=== PATIENT | female | born 1985 | race Caucasian/White ===

== ENCOUNTER 2019-07-09 07:40 | Inpatient (IN) | payer OTHER ==
[2019-07-09] VITALS (123 sets, daily range): BP systolic 91–97; BP diastolic 51–74; PULSE 113–134; TEMP 98.1–98.7; O2SAT 84–100
[~2019-07-09] VITALS: Ht 157.5 cm; Wt 74.3 kg
[~2019-07-09 07:40] MED LIST: ATIVAN 1MG T1 MG/TAB PO; FLEXERIL 1010 MG/TAB PO; PROZAC 20MG20 MG PO; TREXIMET 500 MG1 TAB PO; VOLTAREN 50MG T50 MG PO
--- NOTE | 2019-07-09 10:10 | NUR ---
PATIENT ADMITED VIA POV TO ROOM 347. PATIENT IS OVER AN HOUR LATE FROM REPORTED DISCHARGE TIME FROM [facility]. WHEN ASKED, PATIENT STATED SHE WENT HOME TO CHANGE CLOTHES. SHE ALSO CONFIRMS DRINKING WATER & JUICE KNOWING SHE WAS COMING TO [facility] FOR A POSSIBLE PROCEDURE. [facility] REPORTED POSITIVE DRUG SCREEN. PATIENT'S IV WAS DC'D ON DISCHARGE. RE-STARTED 20 GAUZE IV INTO RIGHT HAND WITH IV FLUIDS INFUSING VIA PUMP PER ORDERS. NO C/O N/V. CURRENTLY NPO. PATIENT UNABLE TO VOID ON ADMIT. JOHNSON PLACED TO DD WITH ORANGE COLORED URINE NOTED. UA SENT. PHYSICIAN NOTIFIED OF ARRIVAL. HEAD TO TOE ASSESSMENT COMPLETE. FRIENDS AT BEDSIDE.
[2019-07-09 11:51] LABS: COLLECTION METHOD CATHETER
[2019-07-09 12:17] LABS: TRICYCLIC ANTIDEPRESS URINE NEGATIVE
[2019-07-09 12:19] LABS: PH 5 (5-8); SQUAMOUS EPITHELIAL 0-2 /hpf; URINE APPEARANCE Hazy; URINE BACTERIA Rare /hpf; URINE BILIRUBIN Negative (NEGATIVE); URINE BLOOD 3+ (NEGATIVE); URINE COLOR Amber; URINE GLUCOSE Negative (NEGATIVE); URINE KETONE Negative (NEGATIVE); URINE LEUKOCYTE ESTERASE 2+ (NEGATIVE); URINE NITRATE Positive (NEGATIVE); URINE PROTEIN(semi-quant) 2+ (NEGATIVE); URINE RBC >50 /hpf; URINE UROBILINOGEN Negative (NEGATIVE); URINE WBC >50 /hpf
[2019-07-09] MEDS ORDERED: MINIPRESS 1M1 MG/CAP PO (13:04)
--- NOTE | 2019-07-09 15:08 | NUR ---
Patient arrives from PACU and is transferred to ICU bed and monitors. Assessment and vitals as charted. Dr. Lane called for clarification of transfer orders and changes made as entered. Dr. Flores notified of consult. Care assumed at this time.
[2019-07-09 17:31] LABS: HEMATOCRIT 37.5 % (37.0-47.0); HEMOGLOBIN 12.3 g/dl (12.5-16.0); MEAN CELL VOLUME 93 fl (80.0-100.0); MEAN CORPUSCULAR HEMOGLOBIN 31 pg (27.0-31.0); MEAN CORPUSCULAR HGB CONC 33 g/dl (33.0-37.0); MEAN PLATELET VOLUME 12.4 fl (7.4-10.4); RED BLOOD COUNT 4.03 M/mm3 (4.10-5.30)
[2019-07-09 17:38] LABS: PLATELET COUNT 48 K/mm3 (130-400)
[2019-07-09 17:44] LABS: ALBUMIN 2.6 gm/dL (3.5-5.0); BILIRUBIN,TOTAL 0.4 mg/dL (0.0-1.0); CALCIUM 7.8 mg/dL (8.4-10.2); CREATININE, serum 1.59 (0.52-1.25); MAGNESIUM 1.5 mg/dL (1.6-2.3); PHOSPHOROUS 3.5 mg/dL (2.5-4.5); TOTAL PROTEIN 4.9 gm/dL (6.4-8.2)
[2019-07-09 17:49] LABS: BAND 22 % (0-10); LYMPHOCYTE 3 % (20.0-51.0); MYELOCYTE 1 % (0-0); NEUTROPHILS 69 % (42.0-75.2); PLATELET ESTIMATE DECREASED (NORMAL)
[2019-07-09 17:57] LABS: TOXIC GRANULATION PRESENT
--- NOTE | 2019-07-09 18:57 | NUR ---
Dr. Lane notified of most recenet lab values. No replacement orders recieved. Other new orders as entered in [facility].
--- NOTE | 2019-07-09 20:00 | NUR ---
Patient assessed, states she is having pain. Educated that she has pain medications availible if her BP systolic is greater than 90, PT states understanding. Will continue to educate and monitor.
[2019-07-10] VITALS (355 sets, daily range): BP systolic 80–112; BP diastolic 40–69; PULSE 96–113; TEMP 98.1–99; O2SAT 80–100
--- NOTE | 2019-07-10 02:00 | NUR ---
Dr. Booker called to follow up on PT BP's. Currently 85/46. Ordered 1L fluid bolus. I stated that the patient is in severe pain r/t to her uretal stone, Dr. Booker asked what pain medications she has on (percoet, morphine, and scheduled toradol). I told the provider I did not give the midnight toradol since her BP's were low, Dr. Booker asked what the patient's sodium and creatinine were (140 and 1.59, respectively), provider stated that we could not do the toradol since the Pants Presser Automatic was high and didn't want to give percocet or morphine due to low BP. Decided on ordering fentanyl stating "it may drop the BP some but not as much as the morphine."
--- NOTE | 2019-07-10 02:05 | NUR ---
Spoke with [facility] RN about the ordered fluid bolus and the RN stated to give it over 2 hours. [facility] RN inquired over fluid output (PT has adequate output but it is still cloudy), recommended I flush with sterile water to prevent any blockages.
--- NOTE | 2019-07-10 07:00 | NUR ---
Report given to JOSE Lai.
--- NOTE | 2019-07-10 08:25 | NUR ---
MD Domingo in to see pt
--- NOTE | 2019-07-10 11:50 | NUR ---
MD Domingo notified critical low platlet count. Hospitalist consulted. MD Marlena on unit and notified at this time
[2019-07-10 12:13] LABS: MEAN CELL VOLUME 94 fl (80.0-100.0); MEAN CORPUSCULAR HGB CONC 32 g/dl (33.0-37.0); MEAN PLATELET VOLUME 13.2 fl (7.4-10.4); RED BLOOD COUNT 3.37 M/mm3 (4.10-5.30); REDCELL DISTRIBUTION WIDTH-CV 13.3 % (11.5-14.5)
[2019-07-10 12:15] LABS: HEMATOCRIT 31.5 % (37.0-47.0); HEMOGLOBIN 10.2 g/dl (12.5-16.0); MEAN CORPUSCULAR HEMOGLOBIN 30 pg (27.0-31.0)
[2019-07-10 12:16] LABS: ALBUMIN 2.3 gm/dL (3.5-5.0); BILIRUBIN,TOTAL 0.2 mg/dL (0.0-1.0); CALCIUM 7.8 mg/dL (8.4-10.2); CREATININE, serum 1.4 (0.52-1.25); PLATELET COUNT 45 K/mm3 (130-400); POTASSIUM 4.2 mmol/L (3.4-5.0); TOTAL PROTEIN 4.7 gm/dL (6.4-8.2)
[2019-07-10 12:58] LABS: BAND 32 % (0-10); BURR CELLS 2+; LYMPHOCYTE 13 % (20.0-51.0); METAMYELOCYTE 2 % (0-0); NEUTROPHILS 53 % (42.0-75.2); POIKILOCYTOSIS 2+
[2019-07-10 12:59] LABS: HYPOCHROMIA 1+; PLATELET ESTIMATE DECREASED (NORMAL)
--- NOTE | 2019-07-10 14:49 | NUR ---
Personal Care Home Administrator met with patient and patient's boyfriend, Alvino (ph#[phone]) to discuss discharge planning. Patient states she lives in [place] with Alvino and another roommate. Patient states she sees Dr. Fuentes for primary care and obtains medications from [facility] in [place]. During intake, Alvino left the room. After Alvino left, SW spoke with patient about her positive urine drug screen. Patient admitted to marijuana use but denied any other drug use. Patient denies ever seeking treatment for drug abuse and did not feel she needed treatment at this time. Patient states she does not have Advance Directives but was interested in setting them up. SW provided the form and will follow up on witness signatures.
--- NOTE | 2019-07-10 19:45 | NUR ---
Patient alert and oriented. Requesting pain medication for 8 of 10 pain. Discussed pain relief options including non pharmacalogical options. Patient receptive. IV in the right hand. Antibiotics given as ordered. Patient required one dose of IV fentanyl for pain managment, discussed with paitent benefits of oral pain medication.
[2019-07-10 22:19] LABS: CREATININE, serum 1.39 (0.52-1.25)
[2019-07-10 22:29] LABS: FRACTIONAL EXCRETION OF NA+ 0.3 %
[2019-07-11 03:39] VITALS: BP 101/65; PULSE 94; TEMP 98.7
[2019-07-11 06:47] LABS: MEAN CELL VOLUME 96 fl (80.0-100.0); MEAN CORPUSCULAR HEMOGLOBIN 30 pg (27.0-31.0); MEAN CORPUSCULAR HGB CONC 32 g/dl (33.0-37.0); MEAN PLATELET VOLUME 12.2 fl (7.4-10.4); RED BLOOD COUNT 3.31 M/mm3 (4.10-5.30); REDCELL DISTRIBUTION WIDTH-CV 13.3 % (11.5-14.5)
[2019-07-11 06:54] LABS: HEMATOCRIT 31.7 % (37.0-47.0)
[2019-07-11 06:55] LABS: PLATELET COUNT 36 K/mm3 (130-400)
[2019-07-11 06:57] LABS: CALCIUM 7.8 mg/dL (8.4-10.2); CREATININE, serum 1.29 (0.52-1.25); POTASSIUM 3.8 mmol/L (3.4-5.0)
--- NOTE | 2019-07-11 07:21 | NUR ---
Notified hospitalist of platelet value of 36 and of change in vital signs. Physician said to continue pain medication, no other orders at this time.
[2019-07-11 07:25] LABS: BAND 21 % (0-10); BURR CELLS 1+; EOSINOPHIL 1 % (0-4); LYMPHOCYTE 22 % (20.0-51.0); NEUTROPHILS 54 % (42.0-75.2); PLATELET ESTIMATE DECREASED (NORMAL)
--- NOTE | 2019-07-11 07:35 | NUR ---
GUANAKO PARIKH CALLED AND NOTIFIED OF CHANGE IN PATIENTS VITAL SIGNS OVER THE LAST COUPLE HOURS, CONCERNS EXPRESSED FOR SEPSIS OR DETOX. NO ORDERS GIVEN AT THIS TIME.
[2019-07-11 07:37] VITALS: BP 129/73; PULSE 84; TEMP 101.5
--- NOTE | 2019-07-11 08:00 | NUR ---
SEE MORNING SHIFT ASSESSMENT.
--- NOTE | 2019-07-11 09:01 | NUR ---
Vancomycin Initial Dosing Pharmacy Note Ordering provider: Valentin Lane MD Indication/duration: enterococcus UTI, 7 days Relevant comorbidities: left ureteral stone LABS: SCr 1.29, CrCl~57, GFR 48 Recommendation: Will start Vancomycin 1.25 gm IV x1 loading dose, then Vancomycin 1 gm IV q12h. Pharmacy will continue to monitor and check a Vancomycin trough on 07/12/19. Loading dose: 1.25 grams Maintenance dose: 1 gram every 12 hours Trough goal: 10-15 ug/mL
[2019-07-11 12:15] VITALS: BP 110/60; PULSE 108; TEMP 98.1
[2019-07-11 16:19] VITALS: BP 115/74; PULSE 111; TEMP 99.6
--- NOTE | 2019-07-11 19:16 | NUR ---
REPORT GIVEN TO JOSE CURRY.
[2019-07-11 20:00] VITALS: BP 121/74; PULSE 116; TEMP 98.4
--- NOTE | 2019-07-11 22:21 | NUR ---
Pt doing ok. in room with boyfriend. does c/o abdominal pain. received prn morphine. does have generalized edema all over. is alert and oriented with vss. call light within reach, will continue to monitor
--- NOTE | 2019-07-11 23:12 | NUR ---
Pt sleeping in bed with boyfriend. Call light within reach, will continue to monitor
[2019-07-12] VITALS (12 sets, daily range): BP systolic 104–1025; BP diastolic 66–81; PULSE 101–131; TEMP 98.1–102.7
--- NOTE | 2019-07-12 02:05 | NUR ---
prn tylenol given, temp of 102.7
--- NOTE | 2019-07-12 04:39 | NUR ---
Pt temp decreased to 100.1, hr elevated at 130. pt requesting pain medicine. will give prn oxy/tylenol. no other concerns at this time. call light within reach, will continue to monitor
[2019-07-12 08:31] LABS: HEMATOCRIT 30.8 % (37.0-47.0); HEMOGLOBIN 9.8 g/dl (12.5-16.0); MEAN CELL VOLUME 94 fl (80.0-100.0); MEAN CORPUSCULAR HEMOGLOBIN 30 pg (27.0-31.0); MEAN CORPUSCULAR HGB CONC 32 g/dl (33.0-37.0); MEAN PLATELET VOLUME 12.1 fl (7.4-10.4); PLATELET COUNT 55 K/mm3 (130-400); RED BLOOD COUNT 3.27 M/mm3 (4.10-5.30); REDCELL DISTRIBUTION WIDTH-CV 13.4 % (11.5-14.5)
[2019-07-12 08:42] LABS: CALCIUM 7.8 mg/dL (8.4-10.2); CREATININE, serum 1.16 (0.52-1.25); MAGNESIUM 1.7 mg/dL (1.6-2.3); POTASSIUM 3.9 mmol/L (3.4-5.0)
--- NOTE | 2019-07-12 09:00 | NUR ---
Assessment complete. Pt drowsy, alert to stimuli, reports pain to left side 9 out of 10. IVF's infusing per orders through right hand/wrist without s/s of complications. Bilat upppe ext with non-pitting edema, right slight more than left. No further needs reported. Call light in reach.
[2019-07-12 11:18] LABS: BAND 2 % (0-10); EOSINOPHIL 1 % (0-4); LYMPHOCYTE 15 % (20.0-51.0); NEUTROPHILS 78 % (42.0-75.2); PLATELET ESTIMATE DECREASED (NORMAL)
--- NOTE | 2019-07-12 11:30 | NUR ---
Pt c/o pain to RH IV. Checked and flushed IV to RH and pt verbalized pain and stinging while flushing. IV to RH DC'd. Multiple failed attempts to start IV. Aldo Cohen started IV to LAC. Morphine RN NURSERY pump restarted. Assisted pt to BSC x3. Call light within reach. Needs attended too.
--- NOTE | 2019-07-12 13:20 | NUR ---
GLAZING DEPARTMENT SUPERVISOR started per orders with IVF rate decreased per orders. Pt grimacing with movement, very thankful for the GLAZING DEPARTMENT SUPERVISOR Morphine, verbalizes understanding of wearing O2 and CO2 monitoring. VSS. Call light in reach.
--- NOTE | 2019-07-12 17:56 | NUR ---
Patient sitting up in bed, friend at the bedside. Complaints of pain, unsure where pain is located. Patient on MEAL COOK and tolerating well. VS monitored. VSS. IV CDI. Patient complaints of a headache, medication given when requested. No further needs expressed from patient. Call light within reach
--- NOTE | 2019-07-12 20:00 | NUR ---
Received report from JOSE Henry. Assessment complete. Pt c/o pain to abdomen, rate 8/10. Pt on WOOL FLEECE GRADER pump morphine 1 mg/6 mins. Pt utilizes pump appropriately and states relief of pain, rate 1-2/10. Alert and oriented. Tele monitor in place, leads checked. Significant other/friend at bedside. Needs met. Call light within reach.
[2019-07-13] VITALS (8 sets, daily range): BP systolic 109–127; BP diastolic 51–76; PULSE 69–117; TEMP 97.9–101.8
--- NOTE | 2019-07-13 05:54 | NUR ---
Assisted pt to BSC a few times during this shift. Pt continued to c/o 8-9/10 to abdomen with relief after using MACHINE OVERHAULER pump, rate down to 2/10. Pt off MACHINE OVERHAULER pump during cipro administration due to morphine and cipro incompatibility. PRN Percocet given to pt as requested with onset of pain. MACHINE OVERHAULER pump restarted after cipro dose complete. Needs met. Friend/significant other remained at bedside. Call light within reach.
--- NOTE | 2019-07-13 06:54 | NUR ---
Report given to JOSE Henry and JOSE Swain.
[2019-07-13 08:36] LABS: BASO % 0.5 % (0.0-2.0); EOS # 0.1 (0.0-0.7); EOS % 1.4 % (0-4.0); GRAN % 69.8 % (42.2-75.2); HEMOGLOBIN 11.6 g/dl (12.5-16.0); LYMPH # 0.8 (1.2-3.4); LYMPH % 14.5 % (20.0-51.0); MEAN CELL VOLUME 95 fl (80.0-100.0); MEAN CORPUSCULAR HEMOGLOBIN 30 pg (27.0-31.0); MEAN CORPUSCULAR HGB CONC 32 g/dl (33.0-37.0); MEAN PLATELET VOLUME 11.5 fl (7.4-10.4); MONO # 0.7 (0.1-0.6); MONO % 12.4 % (1.7-9.3); PLATELET COUNT 69 K/mm3 (130-400); RED BLOOD COUNT 3.86 M/mm3 (4.10-5.30); REDCELL DISTRIBUTION WIDTH-CV 13.6 % (11.5-14.5)
[2019-07-13 08:39] LABS: HEMATOCRIT 36.8 % (37.0-47.0)
[2019-07-13 08:49] LABS: CALCIUM 8.4 mg/dL (8.4-10.2); POTASSIUM 3.7 mmol/L (3.4-5.0)
--- NOTE | 2019-07-13 10:57 | NUR ---
SW attended clinical rounds. The patient had a fever last night. She may tentatively be ready to discharge tomorrow, 07/13. SW to continue to follow as needed.
--- NOTE | 2019-07-13 17:19 | NUR ---
Vancomycin Initial Dosing Pharmacy Note Ordering provider: Valentin Lane MD Indication/duration: Urine infection LABS: est Crcl of 65 ml/min Recommendation: Initiate at 1 gram IV q 8hr, will follow labs, obtain trough prior to 6th dose. Creatinine level is trending down, dose may need further adjustments. Loading dose: 1 grams Maintenance dose: 1 gram every 8 hours Trough goal: 15-20 ug/mL
--- NOTE | 2019-07-13 18:21 | NUR ---
Patient has had complaints of pain in left side where stent is placed. Patient also started her mensturation and may be adding to current pain. Patient A&Ox3. VSS. IV CDI, fluids infusing. Patient urine caballero red with clots. Monitoring I&O's. Patient encouraged to ambulate. Has complaints of nausea, did not request nausea medication. No further needs expressed from patient. Call light within reach
--- NOTE | 2019-07-13 21:30 | NUR ---
Patient resting in bed. Currently afebrile. Patients states she has a headache. Urine is caballero red a this time, however patients states she is expecting her period. Patient states she has a headache, pain medication given. IV in andreina left aneicubital.
[2019-07-14 00:15] VITALS: BP 113/66; PULSE 95; TEMP 100.6
[2019-07-14 04:36] VITALS: BP 123/76; PULSE 109; TEMP 98.5
[2019-07-14 08:00] VITALS: BP 119/69; PULSE 121; TEMP 101.2
--- NOTE | 2019-07-14 09:50 | NUR ---
ASSESSMENT COMPLETED. PATIENT SITTING AT WINDOW WITH SO. TOLDERATED ASSESSMENT WELL. GENERALIZED EDEMA NOTED. VSS. IV IS CLEAN DRY INTACT AND PATENT. PATIENT UNDERSTANDS PLAN OF CARE. NO FURTHER NEEDS WERE EXPRESSED. CALL LIGHT WITHIN REACH.
[2019-07-14 12:00] VITALS: BP 120/70; PULSE 114; TEMP 98.1
--- NOTE | 2019-07-14 13:00 | NUR ---
PATIENT DOWN TO CT AT 1300.
[2019-07-14 14:55] LABS: BASO % 0.5 % (0.0-2.0); EOS # 0.1 (0.0-0.7); EOS % 1.2 % (0-4.0); GRAN # 4.5 (1.4-6.5); GRAN % 69.7 % (42.2-75.2); LYMPH # 0.8 (1.2-3.4); LYMPH % 12.9 % (20.0-51.0); MEAN CELL VOLUME 91 fl (80.0-100.0); MEAN CORPUSCULAR HGB CONC 33 g/dl (33.0-37.0); MEAN PLATELET VOLUME 10.9 fl (7.4-10.4); MONO # 0.9 (0.1-0.6); MONO % 14.3 % (1.7-9.3); PLATELET COUNT 89 K/mm3 (130-400); RED BLOOD COUNT 3.16 M/mm3 (4.10-5.30)
[2019-07-14 14:59] LABS: HEMATOCRIT 28.6 % (37.0-47.0); HEMOGLOBIN 9.5 g/dl (12.5-16.0); MEAN CORPUSCULAR HEMOGLOBIN 30 pg (27.0-31.0)
[2019-07-14 15:11] LABS: CREATININE, serum 0.85 (0.52-1.25); POTASSIUM 3.2 mmol/L (3.4-5.0)
[2019-07-14] MEDS ORDERED: CIPRO 500MG TA500 MG PO (15:23)
[2019-07-14] MEDS ORDERED: NICODERM C14 MG/PATC TD (15:24)
--- NOTE | 2019-07-14 15:46 | NUR ---
MD Domingo called to notify MD Noreen has Ok'ed discharge of pt. Pt expressing wishes to be discharged
--- NOTE | 2019-07-14 18:19 | NUR ---
Hand written scripts from MD Domingo provided. Preferred pharmacy closed close to discharge time, recommended [facility] as a second option. Explained the importance of ciproflaxin compliance to prevent further infection.
== END 2019-07-14 18:15 | disposition home or self-care (01) | DRG 854 ==
LOC: SURG 07:40 → ICU 14:00 → MEDICAL 14:00 → ICU 14:01 → SURG 15:11 → ICU 15:11 → MEDICAL 07-10 19:17
PROVIDERS: Hospitalist; Internal Medicine Critical Care Medicine; Nurse Practitioner Family; Physician Assistant; ADMIT Urology
PROC: 0T778DZ Dilation of Left Ureter with Intraluminal Device, Via Natural or Artificial Opening Endoscopic (ICD-10-PCS; principal; 2019-07-09 13:30)
PROC: BT1F1ZZ Fluoroscopy of Left Kidney, Ureter and Bladder using Low Osmolar Contrast (ICD-10-PCS; 2019-07-09 13:30)
DX: A41.9 Sepsis, unspecified organism (principal); N13.6 Pyonephrosis; N17.9 Acute kidney failure, unspecified; F41.9 Anxiety disorder, unspecified; F32.9 Major depressive disorder, single episode, unspecified; G43.909 Migraine, unspecified, not intractable, without status migrainosus; F17.200 Nicotine dependence, unspecified, uncomplicated; E86.1 Hypovolemia; F15.10 Other stimulant abuse, uncomplicated; D69.6 Thrombocytopenia, unspecified; E83.42 Hypomagnesemia; R65.20 Severe sepsis without septic shock; D64.9 Anemia, unspecified; E88.09 Other disorders of plasma-protein metabolism, not elsewhere classified; B95.2 Enterococcus as the cause of diseases classified elsewhere
CPT/HCPCS: 99223; 99232-AI; A4314; C1769; C2617; J0690; J0744; J1100; J1885; J1940; J2270; J2405; J2543; J2704; J3010; J3370; J7030; J7040; J7050; J7070; Q9967

== ENCOUNTER 2019-07-28 06:37 | Day surgery (SDC) | payer OTHER ==
[~2019-07-28] VITALS: Ht 157.5 cm; Wt 56.7 kg
[~2019-07-28 06:37] MED LIST changes: +CIPRO 500MG TA500 MG PO; +MINIPRESS 1M1 MG/CAP PO; +NICODERM C14 MG/PATC TD
[2019-07-28 07:03] VITALS: BP 119/77; PULSE 105; TEMP 97.3
[2019-07-28 07:11] LABS: TRICYCLIC ANTIDEPRESS URINE NEGATIVE
--- NOTE | 2019-07-28 07:24 | NUR ---
DR LOVE AND ANESTHESIA INFORMED OF LAB RESULTS. DR LOVE SAID HE WOULD BE INTO TALK WITH PATIENT.
--- NOTE | 2019-07-28 07:25 | NUR ---
PRE OP MEDS HELD AND IV NOT STARTED
--- NOTE | 2019-07-28 08:22 | NUR ---
DR LOVE INTO TALK WITH PATIENT AND DISCUSS LAB RESULTS
--- NOTE | 2019-07-28 08:25 | NUR ---
SURGERY CANCELLED OFFICE WILL CALL PATIENT AT HOME
--- NOTE | 2019-07-28 08:33 | NUR ---
PATIENT DISCHARGED PER OWN WILL STEADY GAIT. DISCHARGED IN CARE OF FRIENDS SUSHMA AND JEAN
== END 2019-07-28 08:33 | disposition home or self-care (01) ==
LOC: SDCO 06:37
PROVIDERS: Registered Nurse
DX: N20.1 Calculus of ureter (principal); R31.0 Gross hematuria; J45.909 Unspecified asthma, uncomplicated; I10 Essential (primary) hypertension; K21.9 Gastro-esophageal reflux disease without esophagitis; G43.909 Migraine, unspecified, not intractable, without status migrainosus; F41.9 Anxiety disorder, unspecified; F32.9 Major depressive disorder, single episode, unspecified; F43.10 Post-traumatic stress disorder, unspecified; Z53.8 Procedure and treatment not carried out for other reasons; Z87.891 Personal history of nicotine dependence

== ENCOUNTER 2020-06-07 13:02 | Day surgery (SDC) | payer SELFPAY ==
[~2020-06-07] VITALS: Ht 157.5 cm; Wt 64.4 kg
[2020-06-07 14:07] LABS: TRICYCLIC ANTIDEPRESS URINE NEGATIVE
[2020-06-07 14:16] VITALS: BP 130/81; PULSE 124; TEMP 98.4
[2020-06-07 16:55] VITALS: BP 113/70; PULSE 122; TEMP 98.1
--- NOTE | 2020-06-07 16:55 | NUR ---
Patient was brought back to [facility] [address] via cart from PACU. Report recieved from Geeta GARCIA. Placed on monitors, vital signs stable, increased HR within range of baseline. Alert and oriented complains of pain 8/10 to flank with slight nausea. Sipping on water without difficulty. Requesting muffin and juice at this time. Call hughes within reach, will continue to monitor.
[2020-06-07 17:15] VITALS: BP 118/66; PULSE 121
--- NOTE | 2020-06-07 17:15 | NUR ---
Patient tolerating food and drink without difficulty. Requesting oral pain medication. To be given per doctors orders. Will monitor.
[2020-06-07 17:30] VITALS: BP 106/62; PULSE 126
--- NOTE | 2020-06-07 17:40 | NUR ---
Patient states she needs to use restroom, ambulated to bathroom with one assist. Voided without difficulty. Pain and burning with urnination. Moderate amount of blood noted. Patient states she would like to go home when her sister arrive. IV removed, intact. Small improvement to pain in back. Patient to get dressed at this time.
--- NOTE | 2020-06-07 17:57 | NUR ---
Discharge instructions reviewed with patient, all questions answered. Explained to call office on wednesday to schedule follow up. Number provided.
--- NOTE | 2020-06-07 18:05 | NUR ---
Patient brought out to ER entrance via wheel chair. To be driven home by sister. Met at front door. All belongings in hand.
== END 2020-06-07 18:05 | disposition home or self-care (01) ==
LOC: SDCO 13:02
PROVIDERS: Urology
DX: N20.1 Calculus of ureter (principal); N21.1 Calculus in urethra; F41.9 Anxiety disorder, unspecified; F32.9 Major depressive disorder, single episode, unspecified; Z87.440 Personal history of urinary (tract) infections; G43.909 Migraine, unspecified, not intractable, without status migrainosus; F17.210 Nicotine dependence, cigarettes, uncomplicated; J45.909 Unspecified asthma, uncomplicated; K21.9 Gastro-esophageal reflux disease without esophagitis; F43.10 Post-traumatic stress disorder, unspecified
CPT/HCPCS: C1769; C2617; J1170; J2405; J2704; J3010; J7120

== ENCOUNTER 2020-06-28 11:19 | Day surgery (SDC) | payer SELFPAY ==
[~2020-06-28] VITALS: Ht 157.5 cm; Wt 62.0 kg
[2020-06-28] MEDS ORDERED: ULTRAM 50MG TAB50 MG PO (11:57)
[2020-06-28] MEDS ORDERED: ATIVAN 1MG T1 MG/TAB PO (11:58)
[2020-06-28 12:18] LABS: TRICYCLIC ANTIDEPRESS URINE NEGATIVE
[2020-06-28 14:14] VITALS: BP 132/83; PULSE 90; TEMP 98.2
[2020-06-28 16:38] VITALS: TEMP 99.5
--- NOTE | 2020-06-28 16:55 | NUR ---
Patient arrives back to [facility] alert, denies nausea, reports pain 6/10 in right flank. Patient monitor applied, vitals stable, patient given muffin and juice.
--- NOTE | 2020-06-28 17:00 | NUR ---
Patient up to restroom at this time. Patient is able to urinate without any complications. Small amount of blood noted in urine along with small stone fragments.
[2020-06-28 17:05] VITALS: BP 119/84
--- NOTE | 2020-06-28 17:10 | NUR ---
Patient tolerating food and drink without any nausea. Vitals stable.
[2020-06-28 17:12] VITALS: PULSE 99
--- NOTE | 2020-06-28 17:25 | NUR ---
Patient given oral pain medication at this time. Vitals stable.
--- NOTE | 2020-06-28 17:45 | NUR ---
IV discontinued. Patient is dressed and ready to go, just waiting for patient's family/ride to pick her up. Patient reports pain is better.
--- NOTE | 2020-06-28 18:00 | NUR ---
Dismissal instructions gone over with patient. Patient voices understanding and all questions answered. Patient reports her ride is approximately 45-60 minutes away. Patient given ice water and diluted tea. Patient report and care given to JOSE Vidal.
--- NOTE | 2020-06-28 18:06 | NUR ---
Assumed care of the patient from JOSE Desai at this time. The patient is waiting for her ride to come so she can be discharged home. The patient is dressed and sitting up in bed watching television. The patient denies any needs at this time. Will continue to monitor the patient.
--- NOTE | 2020-06-28 19:00 | NUR ---
The patient was escorted out via wheelchair to a private vehicle by JOSE Vidal. The patient's belongings and discharge appears work were sent with him. The patient's boyfriend is present to drive her home.
== END 2020-06-28 19:00 | disposition home or self-care (01) ==
LOC: SDCO 11:19
PROVIDERS: Registered Nurse
DX: N20.1 Calculus of ureter (principal); J45.909 Unspecified asthma, uncomplicated; F17.210 Nicotine dependence, cigarettes, uncomplicated; G43.909 Migraine, unspecified, not intractable, without status migrainosus; F32.9 Major depressive disorder, single episode, unspecified; F41.9 Anxiety disorder, unspecified; Z79.899 Other long term (current) drug therapy
CPT/HCPCS: C1769; J0690; J1100; J1170; J1885; J1940; J2405; J2704; J3010; J7120